=== PATIENT | female | born 2000 | race Caucasian/White ===

== ENCOUNTER 2019-08-13 02:10 | Emergency (ER) | payer SELFPAY ==
[~2019-08-13] VITALS: Ht 165.1 cm; Wt 90.9 kg
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
== END 2019-08-13 02:54 | disposition home or self-care (01) ==
LOC: EDUNIT# 02:10 → ER FS 02:12
DX: R06.89 Other abnormalities of breathing (principal); X02.1XXA Exposure to smoke in controlled fire in building or structure, initial encounter

== ENCOUNTER 2020-07-23 17:51 | Emergency (ER) | payer SELFPAY ==
--- NOTE | 2020-07-23 18:25 | ED Upper Extremity ---
General Chief Complaint: Upper Extremity Stated Complaint: RT HAND INJ Nursing Triage Note: punched a metal door. Is having swelling and pain in 5th finger and is unable to move it without pain. Nursing Sepsis Screen: No Definite Risk Source: patient History of Present Illness Date Seen by Provider: Jul 23, 2020 Time Seen by Provider: 18:21 Initial Comments 19-year-old female presenting to the emergency department with complaints of rig ht hand pain. She states that she had punched a metal door approximately an hour and half to 2 hours ago. She was having continued pain and felt like she was getting swelling to her hand. She was concerned that she may have broken something in her hand. She was having difficulty moving her fifth finger. She denies any numbness or tingling in her hand. She is right-handed. Allergies and Home Medications Allergies Coded Allergies: iodine (Verified Allergy, Unknown, 08/13/19) Home Medications Ibuprofen 800 Mg Tablet, 800 MG PO Q8H PRN for PAIN Prescribed by: RUPA URBINA on 07/23/20 1850 Patient Home Medication List Home Medication List Reviewed: Yes Review of Systems Constitutional: No chills, No fever EENTM: no symptoms reported Respiratory: no symptoms reported Cardiovascular: no symptoms reported Gastrointestinal: no symptoms reported Genitourinary: no symptoms reported Musculoskeletal: see HPI Skin: other (mild swelling and redness to her right hand) Psychiatric/Neurological: See HPI Past Xsatcje-Ceddxi-Ptljyp Hx Past Med/Social Hx: Reviewed Nursing Past Med/Soc Hx Patient Social History Alcohol Use: Denies Use Recreational Drug Use: No Smoking Status: Never a Smoker 2nd Hand Smoke Exposure: No Recent Foreign Travel: No Contact w/Someone Who Travel: No Recent Infectious Disease Expo: No Recent Hopitalizations: No Physical Abuse: No Sexual Abuse: No Mistreated: No Fear: No Seasonal Allergies Seasonal Allergies: Yes Past Medical History Surgeries: No Respiratory: No Cardiac: No Neurological: No Genitourinary: No Gastrointestinal: No Musculoskeletal: No Endocrine: No HEENT: No Cancer: No Psychosocial: No (anger issues ) Depression Integumentary: No Blood Disorders: No Physical Exam Vital Signs Vital Signs - First Documented 07/23/20 18:13 Temp 36.6 Pulse 92 Resp 16 B/P (MAP) 130/85 (100) Pulse Ox 100 Capillary Refill : Less Than 3 Seconds Height, Weight, BMI Height: '" Weight: lbs. oz. kg; 33.00 BMI Method: General Appearance: WD/WN, mild distress Hand: Right, bone tenderness (tender to palpation over the MCP joints of her right hand on the third fourth and fifth joints), limited ROM (limited range of motion of the pinky finger of her right hand), soft tissue tenderness (tender to palpation of the back of her right hand), swelling (mild swelling to the back of her right hand) Neurologic/Psychiatric: alert, oriented x 3 Skin: warm/dry Progress/Results/Core Measures Results/Orders My Orders Orders - RUPA URBINA MD Hand 3 View Right (07/23/20 18:01) Ice: Apply To Affected Area (07/23/20 18:01) Ibuprofen Tablet (Motrin Tablet) (07/23/20 18:50) Vital Signs/I&O 07/23/20 07/23/20 18:13 18:56 Temp 36.6 Pulse 92 88 Resp 16 16 B/P (MAP) 130/85 (100) 125/80 (100) Pulse Ox 100 100 Blood Pressure Mean: 100 Progress Progress Note : Progress Note x-ray was obtained and did not demonstrate any acute fracture or dislocation. Will treat with a splint, ice, ibuprofen for symptomatic care. Advised to follow-up through the clinic if not improving over the next 5-7 days and use a splint for the next 7-10 days. Diagnostic Imaging Diagonstic Imaging: Xray Plain Films/CT/US/NM/MRI: hand Comments NAME: ELODIA UMAÑA [facility] REC#: [id number] PT STATUS: REG ER : 2000 PHYSICIAN: RUPA URBINA MD ADMIT DATE: 07/23/20/ER FS Draft Date of Exam:07/23/20 HAND 3 VIEW RIGHT INDICATION: Pain status post injury. COMPARISON: None. EXAMINATION: Three views of the right hand were obtained. FINDINGS: No fracture, dislocation or other acute bony abnormalities. Joint spaces are well maintained throughout. The soft tissues appear unremarkable. No radiopaque foreign body is identified. IMPRESSION: Unremarkable radiographic exam of the right hand. Dictated on workstation # [id number] Dict: 07/23/201830 Trans: 07/23/201838 [facility] [id number] Interpreted by: MOSHE SPANN MD Electronically signed by: Departure Impression Primary Impression: Contusion of right hand including fingers Qualified Codes: S60.221A - Contusion of right hand, initial encounter; S60.00XA - Contusion of unspecified finger without damage to nail, initial encounter Disposition: HOME, SELF-CARE Condition: Stable Departure-Patient Inst. Decision time for Depature: 18:48 Referrals: NO,LOCAL PHYSICIAN (PCP) Primary Care Physician [facility] Patient Instructions: Contusion (DC), Hand Pain (DC), SPLINT CARE Add. Discharge Instructions: Use splint for the next 7 to 10 days to give support to your hand and let it rest and heal. Ice 20-30 minutes every few hours to help with pain and swelling. Ibuprofen 800 mg every 8 hours as needed for pain and inflammation Check with clinic in [place] or clinic of your choice if not improving in next 5-7 days All discharge instructions reviewed with patient and/or family. Voiced understanding. Scripts Ibuprofen (Ibuprofen) 800 Mg Tablet 800 MG PO Q8H PRN for PAIN for 10 Days, #30 TAB 0 Refills Prov: RUPA URBINA MD 07/23/20 RUPA URBINA MD Jul 23, 2020 18:24
--- NOTE | 2020-07-23 18:40 | Diagnostic Imaging Report ---
INDICATION: Pain status post injury. COMPARISON: None. EXAMINATION: Three views of the right hand were obtained. FINDINGS: No fracture, dislocation or other acute bony abnormalities. Joint spaces are well maintained throughout. The soft tissues appear unremarkable. No radiopaque foreign body is identified. IMPRESSION: Unremarkable radiographic exam of the right hand. Dictated by: Dictated on workstation # [id number]
[2020-07-23] MEDS ORDERED: IBUPROFEN 800 MG (MOTRIN) TAB PO STA (18:50)
[2020-07-23] MEDS ORDERED: IBUP-1780 PO (18:50)
[2020-07-23 18:56] VITALS: BP 125/80
== END 2020-07-23 19:00 | disposition home or self-care (01) ==
LOC: EDUNIT# 17:51 → ER FS 17:52
DX: S60.051A Contusion of right little finger without damage to nail, initial encounter (principal); Z91.041 Radiographic dye allergy status; W22.8XXA Striking against or struck by other objects, initial encounter
CPT/HCPCS: 73130